=== PATIENT | male | born 1960 | race African-American/Black ===

== ENCOUNTER 2017-01-01 08:10 | Emergency (ER) | payer OTHER ==
[2017-01-01 08:17] VITALS: BP 117/69; PULSE 61; TEMP 97.9; BMI 24.9
[2017-01-01] MEDS ORDERED: ALBUTEROL SO4 2.5/IPRATROPIUM 0.5 INH SOL 3 ML VIAL.NEB. NEB ONE ×3 (09:05→09:26)
[2017-01-01] MEDS ORDERED: predniSONE 20 MG TABLET (UD) PO ONE (09:06)
--- NOTE | 2017-01-01 09:10 | PDOC ---
History of Present Illness - General Chief Complaint: Asthma Stated Complaint: cough, congestion,asthma Time Seen by Provider: 01/01/17 09:05 History Source: Patient Exam Limitations: No Limitations - History of Present Illness Initial Comments: 01/01/17 09:10 Patient recently returned from [place], with a cough nonproductive but moist and fevers 2 days ago. States fevers have resolved but has persistent and worsening cough, feels is wheezing. Timing/Duration: reports: constant, getting worse Severity: reports: moderate Possible Cause: Yes: no prior episodes Associated Symptoms: reports: denies symptoms, chest pain/soreness, cough, fever /chills, nasal congestion Past History - Travel Traveled outside of the country in the last 30 days: No Close contact w/someone who was outside of country & ill: No - Past Medical History Allergies/Adverse Reactions: Allergies Allergy/AdvReac Type Severity Reaction Status Date / Time No Known Allergies Allergy Verified 01/01/17 08:17 Home Medications: Ambulatory Orders Albuterol Sulfate [Proventil HFA Inhaler -] 1 - 2 inh PO QID #1 inhaler Prednisone [Deltasone -] 20 mg PO BID #8 tablet 01/01/17 Anemia: No Asthma: Yes Cancer: No Cardiac Disorders: No CVA: No COPD: No CHF: No Dementia: No Diabetes: No GI Disorders: Yes (HEMORROIDS) Disorders: No HTN: No Hypercholesterolemia: No Liver Disease: No Seizures: No Thyroid Disease: No - Psycho/Social/Smoking Cessation Hx Suicidal Ideation: No Smoking History: Never smoked Hx Alcohol Use: No Drug/Substance Use Hx: No Substance Use Type: None Respiratory Specific PMHX - Complaint Specific PMHX Bronchitis: No Pneumonia: No Review of Systems - Review of Systems Able to Perform ROS?: Yes Is the patient limited Malay proficient: Yes Constitutional: Yes: Symptoms Reported, See HPI, Malaise HEENTM: Yes: Symptoms Reported Respiratory: Yes: Symptoms reported, See HPI, Cough, Wheezing. No: Productive cough (moist but nonproductive ) Cardiac (ROS): No: Symptoms Reported ABD/GI: No: Symptoms Reported Integumentary: Yes: Symptoms Reported, See HPI, Bruising Neurological: Yes: Symptoms reported All Other Systems: Reviewed and Negative *Physical Exam - Vital Signs Last Vital Signs Temp Pulse Resp BP Pulse Ox 97.9 F 61 19 117/69 100 01/01/17 08:15 01/01/17 08:15 01/01/17 08:15 01/01/17 08:15 01/01/17 08:15 - Physical Exam General Appearance: Yes: Nourished, Appropriately Dressed, Apparent Distress HEENT: positive: EOMI, SHELBY, TMs Normal, Pharynx Normal (no redness, swelling or exudate), Muffled/Hoarse voice, Nasal Congestion, Rhinorrhea, Other. negative: Normal Voice, Pharyngeal Erythema, Tonsillar Exudate Neck: positive: Supple. negative: Tender, Lymphadenopathy (R), Lymphadenopathy (L) Respiratory/Chest: positive: Chest Tender (mild pleuritic chest pain.), Wheezing (course inspiratory and expiratory breath sounds, with expiratory wheezing noted throughout). negative: Lungs Clear, Normal Breath Sounds, Accessory Muscle Use Gastrointestinal/Abdominal: positive: Soft. negative: Tender Extremity: positive: Normal Inspection, Normal Range of Motion Integumentary: positive: Dry, Warm, Pale Neurologic: positive: clinical quality assurance specialist II-XII NML intact, Fully Oriented, Alert, Normal Mood/ Affect, Normal Response, Motor Strength 5/5 Progress Note - Progress Note Progress Note: Upper respiratory infection, will treat with DuoNeb nebs and prednisone and reevaluate Medical Decision Making - Medical Decision Making 01/01/17 09:55 Much improved after second DuoNeb and prednisone. States feels clear, able to expectorate thick whitish phlegm. We will continue with prednisone and albuterol pumps and follow-up with PMD next week *DC/Admit/Observation/Transfer Diagnosis at time of Disposition: Upper respiratory infection, viral - Discharge Dispostion Disposition: HOME Condition at time of disposition: Stable Admit: No - Prescriptions Prescriptions: Prednisone [Deltasone -] 20 mg PO BID #8 tablet Albuterol Sulfate [Proventil HFA Inhaler -] 1 - 2 inh PO QID #1 inhaler - Referrals Referrals: Xavier Hernandez MD [Primary Care Provider] - - Patient Instructions Printed Discharge Instructions: DI for Viral Upper Respiratory Infection -- Adult Additional Instructions: Rest, drink lots of fluids: Teas, water, soups, Pedialyte Saltwater gargles Steamy showers/seem to face break up mucus Avoid contact with others until fevers and cough resolved Lots of handwashing and good hygiene Continue [id number] medications for symptomatic relief Tylenol or Motrin for fever and pain Continue albuterol nebulizers every 4-6 hours for the next 2 days then as needed for continued cough Prednisone as directed until completed Followup with private physician in one to 2 days Return to emergency department / pediatric hospital for worsened symptoms, fevers, dehydration
[2017-01-01] MEDS ORDERED: predniSONE 20 MG TABLET (UD) ONE (09:11)
== END 2017-01-01 09:56 | disposition home or self-care (01) ==
LOC: JERFT 08:10
PROC: 3E0F7GC Introduction of Other Therapeutic Substance into Respiratory Tract, Via Natural or Artificial Opening (ICD-10-PCS; principal; 2017-01-01)
DX: J06.9 Acute upper respiratory infection, unspecified (principal); J45.909 Unspecified asthma, uncomplicated
CPT/HCPCS: 99281-25

== ENCOUNTER 2017-02-13 21:02 | Emergency (ER) | payer BC, OTHER ==
[2017-02-13 21:23] VITALS: BP 123/71; PULSE 71; TEMP 99.5; BMI 25.8
--- NOTE | 2017-02-13 22:03 | PDOC ---
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 The patient is able to swallow his own saliva, although this is very painful for him. He denies shortness of breath, cough, REVIEW OF SYSTEMS: GENERAL/CONSTITUTIONAL: Subjective fever. No weakness. No weight change. HEAD, EYES, EARS, NOSE AND THROAT: Throat pain, painful swallowing. No change in voice. CARDIOVASCULAR: No chest pain or palpitations. RESPIRATORY: No cough, wheezing, or shortness of breath. GASTROINTESTINAL: No nausea, vomiting, diarrhea or constipation. GENITOURINARY: No dysuria, frequency, or change in urination. MUSCULOSKELETAL: No joint or muscle swelling or pain. No neck or back pain. SKIN: No rash or easy bruising. NEUROLOGIC: No headache, vertigo, loss of consciousness, or loss of sensation. ALLERGIC/IMMUNOLOGIC: No hives or skin allergy. No latex allergy. PHYSICAL EXAM: GENERAL: The patient is awake, alert, and fully oriented, in no acute distress. ENT: Pharyngeal erythema. Tonsils 2+ with scant white exudate. Cervical adenopathy. No stridor, drooling, or hot potato voice. LUNGS: Clear to auscultation bilaterally. Normal excursion. No respiratory distress or use of accessory muscles. CV: RRR, S1/S2, no MRG. Cap refill < 2 sec. ABDOMEN: Soft, non-distended, non-tender. EXTREMITIES: Normal range of motion, no edema. NEUROLOGICAL: Normal speech, normal gait. CN II-XII grossly intact. PSYCH: Normal mood, normal affect. SKIN: Warm, dry, normal turgor, no rashes or lesions noted. Past History - Past Medical History Allergies/Adverse Reactions: Allergies Allergy/AdvReac Type Severity Reaction Status Date / Time No Known Allergies Allergy Verified 02/13/17 21:20 Home Medications: Ambulatory Orders Ibuprofen [Motrin -] 600 mg PO QID #28 tablet 02/13/17 Anemia: No Asthma: Yes Cancer: No Cardiac Disorders: No CVA: No COPD: No CHF: No Dementia: No Diabetes: No GI Disorders: Yes (HEMORROIDS) Disorders: No HTN: No Hypercholesterolemia: No Liver Disease: No Seizures: No Thyroid Disease: No - Psycho/Social/Smoking Cessation Hx Suicidal Ideation: No Smoking History: Never smoked Have you smoked in the past 12 months: No Information on smoking cessation initiated: No Hx Alcohol Use: No Drug/Substance Use Hx: No Substance Use Type: None *Physical Exam - Vital Signs Last Vital Signs Temp Pulse Resp BP Pulse Ox 99.5 F 71 20 123/71 98 02/13/17 21:21 02/13/17 21:21 02/13/17 21:21 02/13/17 21:21 02/13/17 21:21 Medical Decision Making - Medical Decision Making 02/13/17 22:43 A/P: 56 year old male with tonsillitis/pharyngitis. -Rapid strep positive -Ibuprofen suspension 600mg for pain -Decadron 10mg po x 1 for tonsillar swelling -Bicillin 1.2 units IM Followup instructions and return precautions reviewed. *DC/Admit/Observation/Transfer Diagnosis at time of Disposition: Pharyngitis Qualifiers: Pharyngitis/tonsillitis etiology: streptococcus Qualified Code(s): J02.0 - Streptococcal pharyngitis - Discharge Dispostion Disposition: HOME Condition at time of disposition: Stable Admit: No - Prescriptions Prescriptions: Ibuprofen [Motrin -] 600 mg PO QID #28 tablet - Referrals Referrals: Xavier Brown MD [Primary Care Provider] - Call tomorrow - Patient Instructions Printed Discharge Instructions: DI for Strep Throat Additional Instructions: -You were given a one-time dose of antibiotics for strep throat -Take ibuprofen as prescribed for pain and inflammation -Follow up with Dr. Hernandez on Thursday -Return here if you are unable to swallow your own saliva, if you have any difficulty breathing, or if you have any other concerning symptoms - Post Discharge Activity Work/School Note: Back to Work
[2017-02-13] MEDS ORDERED: PENICILLIN G BENZATHINE 2,400,000 UNIT/4 ML PFS ONE (22:08)
[2017-02-13] MEDS ORDERED: DEXAMETHASONE LIQUID 0.5 MG/5 ML 240 ML BULK BOTTLE PO ONE (22:09)
[2017-02-13] MEDS ORDERED: PENICILLIN G BENZATHINE 1,200,000 UNIT/2 ML PFS IM ONE (22:09)
[2017-02-13] MEDS ORDERED: IBUPROFEN 100 MG/5 ML UNIT DOSE CUPS PO ONE (22:09)
[2017-02-13] MEDS ORDERED: IBUPROFEN 100 MG/5 ML UNIT DOSE CUPS ONE (22:17)
[2017-02-13] MEDS ORDERED: DEXAMETHASONE SOD PHOSPHATE 10 MG/1 ML VIAL ONE (22:17)
== END 2017-02-13 22:38 | disposition home or self-care (01) ==
LOC: JERFT 21:02
DX: J02.0 Streptococcal pharyngitis (principal); B95.0 Streptococcus, group A, as the cause of diseases classified elsewhere
CPT/HCPCS: 87070; 87077; 87430; 99281-25

== ENCOUNTER 2017-06-17 22:19 | Emergency (ER) | payer BC, OTHER ==
[2017-06-17 22:44] VITALS: BMI 25.7
--- NOTE | 2017-06-18 01:11 | PDOC ---
History of Present Illness - General Chief Complaint: Pain Stated Complaint: EYE PAIN Time Seen by Provider: 06/18/17 00:32 - History of Present Illness Initial Comments: 06/18/17 01:05 CHIEF COMPLAINT: eye problem HISTORY OF PRESENT ILLNESS: 57 yo M with history of surgical removal of pterygium (does not remember which eye) and "popped blood vessels in the eye" presents to ED with bleeding to R eye. Patient reports that he was "giving a presentation" when he felt something in his eye, and he rubbed his eye, and as he walked down the stairs someone told him his eye was bleeding. He denies any visual changes. PAST MEDICAL HISTORY: Denies past medical history FAMILY HISTORY: Denies SOCIAL HISTORY: Denies tobacco, alcohol, illicit drug use. SURGICAL HISTORY: Denies ALLERGIES: No known drug allergies REVIEW OF SYSTEMS General/Constitutional: Denies fever or chills. Denies weakness, weight change. HEENT: Bleeding to R eye. Denies change in vision. Denies ear pain or discharge. Denies sore throat. Cardiovascular: Denies chest pain or shortness of breath. Respiratory: Denies cough, wheezing, or hemoptysis. Gastrointestinal: Denies nausea, vomiting, diarrhea or constipation. Denies rectal bleeding. Genitourinary: Denies dysuria, frequency, or change in urination. Musculoskeletal: Denies joint or muscle swelling or pain. Denies neck or back pain. Skin and breasts: Denies rash or easy bruising. Neurologic: Headache earlier, now resolved. Denies vertigo, loss of consciousness, or loss of sensation. PHYSICAL EXAM General Appearance: Well-appearing, appropriately dressed. No apparent distress. HEENT: Subconjunctival hemorrhage to lateral R eye, wedge shaped white scar tissue lateral to iris. No bullous hemorrhage, no globe rupture, no corneal abrasion, no loss of vision. EOMI, PERRLA, normal ENT inspection, normal voice , TMs normal, pharynx normal. No conjunctival pallor. No photophobia, scleral icterus. Neck: Supple. Trachea midline. No tenderness, rigidity, carotid bruit, stridor , lymphadenopathy, or thyromegaly. Respiratory/Chest: Lungs CTAB. No shortness of breath, chest tenderness, respiratory distress, accessory muscle use. No crackles, rales, rhonchi, stridor , wheezing, dullness Cardiovascular: RRR. S1, S2. No JVD, murmur, bradycardia, tachycardia. Vascular Pulses: Dorsalis-Pedis (R): 2+, Dorsalis-Pedis (L): 2+ Gastrointestinal/Abdominal: Normal bowel sounds. Abdomen soft, non-distended. No tenderness or rebound tenderness. No organomegaly, pulsatile mass, guarding , hernia, hepatomegaly, splenomegaly. Lymphatic: No adenopathy, tenderness. Musculoskeletal/Extremities: Normal inspection. FROM of all extremities, normal capillary refill. Pelvis Stable. No CVA tenderness. No tenderness to extremities, pedal edema, swelling, erythema or deformity. Integumentary: Appropriate color, dry, warm. No cyanosis, erythema, jaundice or rash Neurologic: diplomatic courier II-XII intact. Fully oriented, alert. Appropriate mood/affect. Motor strength 5/5. No appreciable EOM palsy, facial droop or sensory deficit. Past History - Past Medical History Allergies/Adverse Reactions: Allergies Allergy/AdvReac Type Severity Reaction Status Date / Time No Known Allergies Allergy Verified 06/17/17 22:41 Home Medications: Ambulatory Orders Ibuprofen [Motrin -] 600 mg PO QID #28 tablet 02/13/17 Anemia: No Asthma: Yes Cancer: No Cardiac Disorders: No CVA: No COPD: No CHF: No Dementia: No Diabetes: No GI Disorders: Yes (HEMORROIDS) Disorders: No HTN: No Hypercholesterolemia: No Liver Disease: No Seizures: No Thyroid Disease: No - Suicide/Smoking/Psychosocial Hx Smoking History: Never smoked Have you smoked in the past 12 months: No Information on smoking cessation initiated: No Hx Alcohol Use: No Drug/Substance Use Hx: No Substance Use Type: None *Physical Exam - Vital Signs Last Vital Signs Temp Pulse Resp BP Pulse Ox 97.5 F L 56 L 18 106/70 98 06/17/17 22:41 06/17/17 22:41 06/17/17 22:41 06/17/17 22:41 06/17/17 22:41 Medical Decision Making - Medical Decision Making 06/18/17 01:11 57 yo M with history of surgical removal of pterygium (does not remember which eye) and "popped blood vessels in the eye" presents to ED with bleeding to R eye. Clinical presentation consistent with subconjunctival hemorrhage. Will refer to ophtho to be seen tomorrow. Advised patient to follow up with optho TOMORROW. Advised patient of signs and symptoms for return to ED. Patient verbalized understanding and agrees to plan. *DC/Admit/Observation/Transfer Diagnosis at time of Disposition: Subconjunctival hemorrhage of right eye - Discharge Dispostion Disposition: HOME Condition at time of disposition: Stable Admit: No - Referrals Referrals: Xavier Hernandez MD [Primary Care Provider] - Royce Pang MD [Staff Physician] - - Patient Instructions Printed Discharge Instructions: DI for Subconjunctival Hemorrhage Additional Instructions: As discussed, please see Dr. Pang TOMORROW. If you develop new eye pain, headache, change in vision, or any new or worsening symptoms, please return to the ER. - Post Discharge Activity Forms/Work/School Notes: Back to Work
[2017-06-18 01:56] VITALS: BP 107/68; PULSE 57; TEMP 97.4
== END 2017-06-18 01:56 | disposition home or self-care (01) ==
LOC: JER 22:19
DX: H11.31 Conjunctival hemorrhage, right eye (principal); J45.909 Unspecified asthma, uncomplicated; K64.9 Unspecified hemorrhoids
CPT/HCPCS: 99281-25

== ENCOUNTER 2023-06-16 11:15 | Emergency (ER) | payer OTHER ==
[2023-06-16 11:26] VITALS: BP 114/75; PULSE 67; RESP 18; TEMP 98; BMI 25.3
[2023-06-16] MEDS ORDERED: DIPHTH,PERTUSS(ACELL),TET 0.5 ML DISP.SYRIN IM ONE (12:25)
[2023-06-16] MEDS: DIPHTH,PERTUSS(ACELL),TET 0.5 ML DISP.SYRIN IM ONE (12:33)
== END 2023-06-16 12:37 | disposition home or self-care (01) ==
LOC: JERFT 11:15
PROC: 0HQDXZZ Repair Right Lower Arm Skin, External Approach (ICD-10-PCS; principal; 2023-06-16)
PROC: 3E0234Z Introduction of Serum, Toxoid and Vaccine into Muscle, Percutaneous Approach (ICD-10-PCS; 2023-06-16)
DX: S61.011A Laceration without foreign body of right thumb without damage to nail, initial encounter (principal); W26.8XXA Contact with other sharp object(s), not elsewhere classified, initial encounter; Y93.G1 Activity, food preparation and clean up
CPT/HCPCS: 12001-25; 90471; 90715; 99282-25

== ENCOUNTER 2023-07-03 15:29 | Emergency (ER) | payer OTHER ==
[2023-07-03 15:35] VITALS: BP 107/64; PULSE 53; RESP 18; TEMP 98.2; BMI 25.3
== END 2023-07-03 18:58 | disposition home or self-care (01) ==
LOC: JER 15:29
DX: Z48.02 Encounter for removal of sutures (principal)
CPT/HCPCS: 99281-25